=== PATIENT | male | born 1960 | race Two or more races ===

== ENCOUNTER 2016-12-22 10:29 | Inpatient (IN) | payer MEDICARE, OTHER ==
[~2016-12-22] VITALS: Ht 165.1 cm; Wt 77.1 kg
[~2016-12-22 10:29] MED LIST: ASPI-991 PO; CARV6.25 PO; DIVA500T2 PO; GEL100GE MC; HALO5TAB PO; LISI10TA59 PO; LORA1TAB82 PO; MAG30ORA PO; METF500T PO; OLAN5TAB3 PO; SIMV20TA2 PO; SITA50TA PO
[2016-12-22] MEDS ORDERED: MORPHINE SULFATE INJ 4 MG/ML DISP.SYRIN ONE (10:48)
[2016-12-22] MEDS ORDERED: IV NS 0.9% 1,000 ML ONE (10:48)
[2016-12-22] MEDS ORDERED: PANTOPRAZOLE 40 MG VIAL ONE (10:48)
[2016-12-22] MEDS ORDERED: IV SET PRIMARY PUMP SET 1 EA INFUS.SET MC ONE ×2 (10:48→14:15)
[2016-12-22] MEDS ORDERED: ONDANSETRON HCL/PF 4 MG/2 ML VIAL ONE (10:48)
[2016-12-22 10:52] LABS: BASOPHILS % (AUTO) 0.2 % (0.0-2.0); EOSINOPHILS % (AUTO) 0.1 % (0.0-6.0); HEMATOCRIT 37 % (39-51); HEMOGLOBIN 12.3 g/dL (13.5-17.5); LYMPHOCYTES % (AUTO) 7.1 % (20.0-44.0); MEAN CORPUSCULAR HEMOGLOBIN 29 PG (26.0-33.0); MEAN CORPUSCULAR HGB CONC 33 g/dl (31.0-36.0); MEAN CORPUSCULAR VOLUME 87 fL (80-96); MONOCYTES # (AUTO) 0.7 /CMM (0.1-1.30); MONOCYTES % (AUTO) 4.9 % (2.0-12.0); NEUTROPHILS # (AUTO) 12.3 /CMM (1.8-8.9); NEUTROPHILS % (AUTO) 87.7 % (43.0-81.0); PLATELET COUNT (AUTO) 316 /CMM (150-450); RDW COEFFICIENT OF VARIATION 13.2 (11.5-15.0); RED BLOOD CELL COUNT(AUTO) 4.27 MIL/uL (4.5-6.0)
[2016-12-22] MEDS ORDERED: IV NS 0.9% 1,000 ML BAG IV ONE (11:00)
[2016-12-22] MEDS ORDERED: ONDANSETRON HCL/PF 4 MG/2 ML VIAL IVP ONE (11:00)
[2016-12-22] MEDS ORDERED: MORPHINE SULFATE INJ 2 MG/ML DISP.SYRIN IV ONE (11:00)
[2016-12-22] MEDS ORDERED: PANTOPRAZOLE 40 MG VIAL IV ONE (11:00)
[2016-12-22 11:07] LABS: INR 1.24 (0.87-1.13)
[2016-12-22 11:10] LABS: ALBUMIN 3.5 g/dL (3.4-5.0); BILIRUBIN,DIRECT 0.1 mg/dL (0.0-0.2); BILIRUBIN,TOTAL 0.4 mg/dL (0.2-1.0); POTASSIUM 5.9 mmol/L (3.5-5.1); TOTAL PROTEIN, SERUM 8.1 g/dL (6.4-8.2)
[2016-12-22 11:11] LABS: TROPONIN I 0.145 ng/mL (0.00-0.056)
[2016-12-22 11:18] LABS: CALCIUM, SERUM 9.8 mg/dL (8.5-10.1)
[2016-12-22] MEDS ORDERED: INSULIN REGULAR, HUMAN 100 UNIT/ML 10 ML VIAL IV ONE (11:30)
[2016-12-22] MEDS ORDERED: LOSA50TA21 PO (11:37)
[2016-12-22] MEDS ORDERED: AMLO10TA2 PO (11:37)
[2016-12-22] MEDS ORDERED: CHOL100044 PO (11:37)
[2016-12-22] MEDS ORDERED: ERGO50003 PO (11:37)
[2016-12-22] MEDS ORDERED: FINA5TAB11 PO (11:37)
[2016-12-22] MEDS ORDERED: AMOX1TAB16 PO (11:37)
[2016-12-22] MEDS ORDERED: INSULIN REGULAR, HUMAN 100 UNIT/ML 10 ML VIAL ONE (11:38)
[2016-12-22] MEDS ORDERED: LORA0.5T PO (12:00)
[2016-12-22] MEDS ORDERED: SITA50TA PO (12:00)
[2016-12-22] MEDS ORDERED: BLOO-668 IN (12:00)
[2016-12-22] MEDS ORDERED: MAG30ORA PO (12:00)
[2016-12-22] MEDS ORDERED: DIVA500T2 PO (12:00)
[2016-12-22] MEDS ORDERED: METF500T4 PO (12:00)
[2016-12-22] MEDS ORDERED: INSU10VI3 SQ (12:00)
[2016-12-22] MEDS ORDERED: HALO1TAB5 PO (12:00)
[2016-12-22] MEDS ORDERED: LISI10TA5 PO (12:00)
[2016-12-22] MEDS ORDERED: IV D5/0.45 NACL 1,000 ML IV PRN (12:44)
[2016-12-22] MEDS ORDERED: SODIUM POLYSTYRENE SULFONATE 15 G/60 ML BOTTLE ONE (12:56)
[2016-12-22] MEDS ORDERED: SODIUM POLYSTYRENE SULFONATE 15 G/60 ML BOTTLE PO ONE ×2 (13:00)
[2016-12-22] MEDS ORDERED: LORAZEPAM 0.5 MG TABLET PO PRN (13:00)
[2016-12-22] MEDS ORDERED: Z GUARD REMEDY 2 OZ OINT TP PRN (13:00)
[2016-12-22] MEDS ORDERED: MORPHINE SULFATE INJ 2 MG/ML DISP.SYRIN IV PRN (13:00)
[2016-12-22] MEDS ORDERED: ONDANSETRON HCL/PF 4 MG/2 ML VIAL IVP PRN (13:00)
[2016-12-22 15:52] VITALS: BP 112/55
[2016-12-22 16:11] VITALS: BP 112/55
[2016-12-22] MEDS: DIVALPROEX SODIUM 500 MG TABLET.DR PO SCH (16:42)
[2016-12-22] MEDS: BLOOD SUGAR DIAGNOSTIC 1 EACH STRIP IN SCH ×2 (17:51→22:01)
[2016-12-22] MEDS: INSULIN REGULAR, HUMAN 100 UNIT/ML 3 ML VIAL SQ PRN ×2 (17:52→22:13)
[2016-12-22] MEDS ORDERED: DEXTROSE 50%-WATER 50 ML DISP.SYRIN IV PRN (18:00)
[2016-12-22 20:00] VITALS: BP 97/54
[2016-12-22 22:00] VITALS: BP 97/54
[2016-12-23] VITALS (7 sets, daily range): BP systolic 91–120; BP diastolic 48–65
[2016-12-23] MEDS ORDERED: IV SET PRIMARY PUMP SET 1 EA INFUS.SET MC ONE ×2 (01:06→19:24)
[2016-12-23] MEDS ORDERED: IV NS 0.9% 1,000 ML ONE (01:06)
[2016-12-23] MEDS: INSULIN REGULAR, HUMAN 100 UNIT/ML 3 ML VIAL SQ PRN ×2 (01:20→11:58)
[2016-12-23] MEDS: IV NS 0.9% 1,000 ML IV PRN (01:21)
[2016-12-23 06:01] LABS: BASOPHILS % (AUTO) 0.3 % (0.0-2.0); HEMATOCRIT 35 % (39-51); HEMOGLOBIN 11.6 g/dL (13.5-17.5); LYMPHOCYTES # (AUTO) 1.2 /CMM (0.8-4.8); LYMPHOCYTES % (AUTO) 8.4 % (20.0-44.0); MEAN CORPUSCULAR HEMOGLOBIN 30 PG (26.0-33.0); MEAN CORPUSCULAR HGB CONC 34 g/dl (31.0-36.0); MEAN CORPUSCULAR VOLUME 89 fL (80-96); MONOCYTES # (AUTO) 0.8 /CMM (0.1-1.30); MONOCYTES % (AUTO) 5.6 % (2.0-12.0); NEUTROPHILS # (AUTO) 12.5 /CMM (1.8-8.9); NEUTROPHILS % (AUTO) 85.7 % (43.0-81.0); PLATELET COUNT (AUTO) 286 /CMM (150-450); RDW COEFFICIENT OF VARIATION 14.3 (11.5-15.0); RED BLOOD CELL COUNT(AUTO) 3.88 MIL/uL (4.5-6.0); WHITE BLOOD COUNT (AUTO) 14.6 K/uL (4.3-11.0)
[2016-12-23] MEDS: BLOOD SUGAR DIAGNOSTIC 1 EACH STRIP IN SCH ×4 (06:16→22:44)
[2016-12-23 06:20] LABS: INR 1.08 (0.87-1.13); PROTHROMBIN TIME 11.6 SECS (9.5-12.7)
[2016-12-23 06:27] LABS: CALCIUM, SERUM 8.8 mg/dL (8.5-10.1); CREATININE 7.4 mg/dL (0.6-1.3); MAGNESIUM 2.5 mg/dL (1.8-2.4)
[2016-12-23 06:31] LABS: THYROID STIMULATING HORMONE 1.593 uIU/mL (0.358-3.74)
[2016-12-23 06:32] LABS: TROPONIN I 36.685 ng/mL (0.00-0.056)
[2016-12-23 06:37] LABS: PHOSPHORUS 11.1 mg/dL (2.5-4.9); POTASSIUM 7.3 mmol/L (3.5-5.1)
[2016-12-23] MEDS ORDERED: Calcium Gluconate 1GM/10ML 9.3 MEQ in IV D5W 250 ML IV ONE (07:00)
[2016-12-23] MEDS ORDERED: INSULIN REGULAR, HUMAN 100 UNIT/ML 10 ML VIAL IV ONE (07:30)
[2016-12-23] MEDS ORDERED: DEXTROSE 50%-WATER 50 ML DISP.SYRIN IVP ONE (07:30)
[2016-12-23] MEDS ORDERED: SECONDARY IV SET 1 EA INFUS.SET MC ONE (07:53)
[2016-12-23] MEDS: DIVALPROEX SODIUM 500 MG TABLET.DR PO SCH ×2 (09:00→17:47)
[2016-12-23] MEDS: PANTOPRAZOLE 40 MG VIAL IV SCH (09:29)
[2016-12-23] MEDS ORDERED: LIDOCAINE /MPF 1% VIAL 5 ML VIAL IJ ONE (10:00)
[2016-12-23] MEDS: SEVELAMER CARBONATE 800 MG TABLET PO SCH ×2 (13:00→17:47)
[2016-12-23] MEDS: ASPIRIN 325 MG TABLET PO SCH (17:47)
[2016-12-23] MEDS ORDERED: HEPARIN SODIUM, PORCINE 5000 UNITS/1 ML VIAL IV ONE (19:00)
[2016-12-23] MEDS: HEPARIN INFUSION/D5W 500 ML IV PRN ×2 (19:41→19:54)
[2016-12-23] MEDS ORDERED: MENTHOL/CETYLPYRD (CEPACOL) 1 LOZ LOZENGE PO PRN (20:30)
[2016-12-24] VITALS (7 sets, daily range): BP systolic 94–108; BP diastolic 45–52
[2016-12-24 02:38] LABS: INR 1.11 (0.87-1.13)
[2016-12-24 03:51] LABS: BILIRUBIN,URINE 1+ (NEGATIVE); BLOOD, URINE 3+ Ery/uL (NEGATIVE); COLOR,URINE YELLOW (YELLOW); KETONES,URINE TRACE (NEGATIVE); LEUKOCYTE ESTERASE ,URINE 2+ (NEGATIVE); NITRITE, URINE NEGATIVE (NEGATIVE); PH,URINE 5.5 (5.0-8.0); PROTEIN,URINE 1+ mg/dl (NEGATIVE); UGLUCOSE NEGATIVE (NEGATIVE); UROBILINOGEN,URINE 0.2 EU/dL (0.2)
[2016-12-24 04:06] LABS: APPEARANCE,URINE CLOUDY (CLEAR)
[2016-12-24 04:07] LABS: BACTERIA,URINE 3+ /HPF (None Seen); SQUAMOUS EPITHELIAL CELL,UR Few /HPF (None Seen); WBC,URINE 25-35 /HPF (0-3)
[2016-12-24 05:04] LABS: CREATININE, URINE 114.5 MG/DL (30.0-125.0); URINE TOTAL PROTEIN 126.1 mg/dL (0-11.9)
[2016-12-24 05:06] LABS: EOSINOPHIL,URINE None Seen
[2016-12-24] MEDS ORDERED: IV SET PRIMARY PUMP SET 1 EA INFUS.SET MC ONE (05:32)
[2016-12-24] MEDS: IV NS 0.9% 1,000 ML IV PRN (05:37)
[2016-12-24 07:49] LABS: ALBUMIN 2.2 g/dL (3.4-5.0); BILIRUBIN,TOTAL 0.4 mg/dL (0.2-1.0); CREATININE 6.5 mg/dL (0.6-1.3); MAGNESIUM 1.3 mg/dL (1.8-2.4); PHOSPHORUS 6.8 mg/dL (2.5-4.9); POTASSIUM 4.7 mmol/L (3.5-5.1); TOTAL PROTEIN, SERUM 5.6 g/dL (6.4-8.2)
[2016-12-24 07:53] LABS: TROPONIN I 39.69 ng/mL (0.00-0.056)
[2016-12-24] MEDS: INSULIN REGULAR, HUMAN 100 UNIT/ML 3 ML VIAL SQ PRN ×4 (08:10→21:51)
[2016-12-24] MEDS: DIVALPROEX SODIUM 500 MG TABLET.DR PO SCH ×2 (08:12→16:43)
[2016-12-24] MEDS: PANTOPRAZOLE 40 MG VIAL IV SCH (08:13)
[2016-12-24] MEDS: BLOOD SUGAR DIAGNOSTIC 1 EACH STRIP IN SCH ×4 (08:13→21:45)
[2016-12-24] MEDS: SEVELAMER CARBONATE 800 MG TABLET PO SCH ×3 (08:13→17:45)
[2016-12-24] MEDS: ASPIRIN 325 MG TABLET PO SCH (08:13)
[2016-12-24 12:16] LABS: CREATINE KINASE MB 122.3 ng/mL (0-3.6)
[2016-12-24 12:17] LABS: BASOPHILS % (AUTO) 0.2 % (0.0-2.0); EOSINOPHILS % (AUTO) 0.1 % (0.0-6.0); HEMATOCRIT 29 % (39-51); HEMOGLOBIN 9.9 g/dL (13.5-17.5); LYMPHOCYTES # (AUTO) 0.5 /CMM (0.8-4.8); LYMPHOCYTES % (AUTO) 6.1 % (20.0-44.0); MEAN CORPUSCULAR HEMOGLOBIN 29 PG (26.0-33.0); MEAN CORPUSCULAR HGB CONC 34 g/dl (31.0-36.0); MEAN CORPUSCULAR VOLUME 86 fL (80-96); MONOCYTES # (AUTO) 0.8 /CMM (0.1-1.30); MONOCYTES % (AUTO) 8.7 % (2.0-12.0); NEUTROPHILS # (AUTO) 7.7 /CMM (1.8-8.9); NEUTROPHILS % (AUTO) 84.9 % (43.0-81.0); PLATELET COUNT (AUTO) 232 /CMM (150-450); RDW COEFFICIENT OF VARIATION 14.6 (11.5-15.0); RED BLOOD CELL COUNT(AUTO) 3.39 MIL/uL (4.5-6.0)
[2016-12-24 13:37] LABS: BAND % (MANUAL) 29 % (0.0-5.0); LYMPHOCYTES % (MANUAL) 2 % (16-48); MONOCYTES % (MANUAL) 9 % (0-11.0); MYELOCYTES % 1 % (0-0); NEUTROPHILS % (MANUAL) 59 (42-76)
[2016-12-24] MEDS ORDERED: SECONDARY IV SET 1 EA INFUS.SET MC ONE (16:34)
[2016-12-24] MEDS: SOD FERRIC GLUC 125 MG in IV NS 0.9% 100 ML IV SCH (16:39)
[2016-12-24] MEDS: HEPARIN INFUSION/D5W 500 ML IV PRN (20:34)
[2016-12-25] VITALS: BP 96/61
[2016-12-25 03:06] LABS: INR 1.2 (0.87-1.13)
[2016-12-25 04:00] VITALS: BP 103/52
[2016-12-25] MEDS: INSULIN REGULAR, HUMAN 100 UNIT/ML 3 ML VIAL SQ PRN ×3 (06:33→21:38)
[2016-12-25] MEDS: BLOOD SUGAR DIAGNOSTIC 1 EACH STRIP IN SCH ×4 (06:35→21:29)
[2016-12-25 07:51] LABS: EOSINOPHILS % (AUTO) 0.1 % (0.0-6.0); HEMATOCRIT 27 % (39-51); HEMOGLOBIN 9.7 g/dL (13.5-17.5); LYMPHOCYTES # (AUTO) 0.7 /CMM (0.8-4.8); LYMPHOCYTES % (AUTO) 9.2 % (20.0-44.0); MEAN CORPUSCULAR HEMOGLOBIN 30 PG (26.0-33.0); MEAN CORPUSCULAR HGB CONC 35 g/dl (31.0-36.0); MEAN CORPUSCULAR VOLUME 85 fL (80-96); MONOCYTES # (AUTO) 0.8 /CMM (0.1-1.30); MONOCYTES % (AUTO) 11.7 % (2.0-12.0); NEUTROPHILS # (AUTO) 5.6 /CMM (1.8-8.9); PLATELET COUNT (AUTO) 228 /CMM (150-450); RDW COEFFICIENT OF VARIATION 14.7 (11.5-15.0); RED BLOOD CELL COUNT(AUTO) 3.23 MIL/uL (4.5-6.0); WHITE BLOOD COUNT (AUTO) 7.1 K/uL (4.3-11.0)
[2016-12-25 08:00] VITALS: BP_SYST 181; BP_SYST 99; BP_DIAS 56; BP_DIAS 70
[2016-12-25 08:26] LABS: BILIRUBIN,TOTAL 0.6 mg/dL (0.2-1.0); CALCIUM, SERUM 6.9 mg/dL (8.5-10.1); CREATININE 4.2 mg/dL (0.6-1.3); MAGNESIUM 1.6 mg/dL (1.8-2.4); PHOSPHORUS 3.2 mg/dL (2.5-4.9); TOTAL PROTEIN, SERUM 5.7 g/dL (6.4-8.2)
[2016-12-25 08:31] LABS: TROPONIN I 18.236 ng/mL (0.00-0.056)
[2016-12-25] MEDS: PANTOPRAZOLE 40 MG VIAL IV SCH (10:06)
[2016-12-25] MEDS: SEVELAMER CARBONATE 800 MG TABLET PO SCH ×3 (10:07→18:22)
[2016-12-25] MEDS: ASPIRIN 325 MG TABLET PO SCH (10:07)
[2016-12-25] MEDS: DIVALPROEX SODIUM 500 MG TABLET.DR PO SCH ×2 (10:07→17:00)
[2016-12-25 10:14] LABS: POTASSIUM 3.1 mmol/L (3.5-5.1)
[2016-12-25 12:00] VITALS: BP 100/57
[2016-12-25] MEDS: SOD FERRIC GLUC 125 MG in IV NS 0.9% 100 ML IV SCH (14:00)
[2016-12-25] MEDS ORDERED: SECONDARY IV SET 1 EA INFUS.SET MC ONE (15:12)
[2016-12-25 16:00] VITALS: BP 104/60
[2016-12-25 20:00] VITALS: BP 108/60
[2016-12-25] MEDS: HEPARIN INFUSION/D5W 500 ML IV PRN (22:48)
[2016-12-26] VITALS: BP 109/57
[2016-12-26 02:46] LABS: INR 1.14 (0.87-1.13); PROTHROMBIN TIME 12.3 SECS (9.5-12.7)
[2016-12-26 04:00] VITALS: BP 118/61
[2016-12-26] MEDS: IV NS 0.9% 1,000 ML IV PRN (06:22)
[2016-12-26] MEDS: BLOOD SUGAR DIAGNOSTIC 1 EACH STRIP IN SCH (06:42)
[2016-12-26 06:56] LABS: BILIRUBIN,TOTAL 0.5 mg/dL (0.2-1.0); CALCIUM, SERUM 7.2 mg/dL (8.5-10.1); CREATININE 2.3 mg/dL (0.6-1.3); MAGNESIUM 1.6 mg/dL (1.8-2.4); PHOSPHORUS 2.4 mg/dL (2.5-4.9); TOTAL PROTEIN, SERUM 5.9 g/dL (6.4-8.2)
[2016-12-26 06:57] LABS: BASOPHILS % (AUTO) 0.1 % (0.0-2.0); EOSINOPHILS % (AUTO) 0.5 % (0.0-6.0); HEMATOCRIT 28 % (39-51); HEMOGLOBIN 9.4 g/dL (13.5-17.5); LYMPHOCYTES # (AUTO) 0.8 /CMM (0.8-4.8); LYMPHOCYTES % (AUTO) 14.6 % (20.0-44.0); MEAN CORPUSCULAR HEMOGLOBIN 29 PG (26.0-33.0); MEAN CORPUSCULAR HGB CONC 34 g/dl (31.0-36.0); MEAN CORPUSCULAR VOLUME 86 fL (80-96); MONOCYTES # (AUTO) 0.7 /CMM (0.1-1.30); MONOCYTES % (AUTO) 12.2 % (2.0-12.0); NEUTROPHILS # (AUTO) 3.9 /CMM (1.8-8.9); NEUTROPHILS % (AUTO) 72.6 % (43.0-81.0); PLATELET COUNT (AUTO) 242 /CMM (150-450); RDW COEFFICIENT OF VARIATION 14.7 (11.5-15.0); RED BLOOD CELL COUNT(AUTO) 3.21 MIL/uL (4.5-6.0); TROPONIN I 9.901 ng/mL (0.00-0.056); WHITE BLOOD COUNT (AUTO) 5.4 K/uL (4.3-11.0)
[2016-12-26] MEDS ORDERED: POTASSIUM CHLORIDE 20 MEQ POWDER PACKET PO ONE (07:30)
[2016-12-26] MEDS ORDERED: Magnesium 1GM/D5W 100ML PREMIX 100 ML IV SCH (07:30)
[2016-12-26] MEDS ORDERED: SECONDARY IV SET 1 EA INFUS.SET MC ONE (07:36)
[2016-12-26 08:00] VITALS: BP 111/52
[2016-12-26 10:33] LABS: *SPE A/G RATIO 1.1 (0.7-1.7); *SPE ALBUMIN 2.7 g/dL (2.9-4.4); *SPE ALPHA-1-GLOBULIN 0.4 g/dL (0.0-0.4); *SPE ALPHA-2-GLOBULIN 0.7 g/dL (0.4-1.0); *SPE BETA GLOBULIN 0.8 g/dL (0.7-1.3); *SPE GLOBULIN, TOTAL 2.5 g/dL (2.2-3.9); *SPE M-SPIKE Not Observed g/dL (Not Observed); *SPE PROTEIN TOTAL 5.2 g/dL (6.0-8.5); *SPEGAMMA GLOBULIN 0.6 g/dL (0.4-1.8)
[2016-12-27 12:15] LABS: PTH, INTACT 149 pg/mL (15-65)
== END 2016-12-26 10:41 | disposition short-term general hospital (02) | DRG 280 ==
LOC: ER 10:30 → TELE 13:58 → TELE1 12-23 17:09
PROC: 5A1D60Z (ICD-10-PCS; principal; 2016-12-23)
PROC: 06HN33Z Insertion of Infusion Device into Left Femoral Vein, Percutaneous Approach (ICD-10-PCS; 2016-12-23)
PROC: B54CZZA Ultrasonography of Left Lower Extremity Veins, Guidance (ICD-10-PCS; 2016-12-23)
DX: I21.4 Non-ST elevation (NSTEMI) myocardial infarction (principal); I50.31 Acute diastolic (congestive) heart failure; K92.2 Gastrointestinal hemorrhage, unspecified; E87.1 Hypo-osmolality and hyponatremia; D68.9 Coagulation defect, unspecified; E87.2 Acidosis; N17.9 Acute kidney failure, unspecified; I13.0 Hypertensive heart and chronic kidney disease with heart failure and stage 1 through stage 4 chronic kidney disease, or unspecified chronic kidney disease; E11.65 Type 2 diabetes mellitus with hyperglycemia; E87.5 Hyperkalemia; D64.9 Anemia, unspecified; J44.9 Chronic obstructive pulmonary disease, unspecified; E78.5 Hyperlipidemia, unspecified; F20.9 Schizophrenia, unspecified; N18.9 Chronic kidney disease, unspecified; Z79.899 Other long term (current) drug therapy; Z79.4 Long term (current) use of insulin; Z79.84 Long term (current) use of oral hypoglycemic drugs; D72.829 Elevated white blood cell count, unspecified; F31.9 Bipolar disorder, unspecified; D50.9 Iron deficiency anemia, unspecified; Z71.6 Tobacco abuse counseling; F17.210 Nicotine dependence, cigarettes, uncomplicated; E11.22 Type 2 diabetes mellitus with diabetic chronic kidney disease; I25.10 Atherosclerotic heart disease of native coronary artery without angina pectoris
CPT/HCPCS: 36415; 71010-TC; 76770-TC; 80048-TC; 80053-TC; 80061-TC; 80076-TC; 81000-TC; 82550-TC; 82553-TC; 82570-TC; 82947-TC; 82962-TC; 83540-TC; 83690-TC; 83735-TC; 83970; 84100-TC; 84132-TC; 84155; 84155-TC; 84165; 84300-TC; 84443-TC; 84484-TC; 85025-TC; 85610-TC; 85730-TC; 86850-TC; 87081-TC; 87086-TC; 87186-TC; 90935-TC; 93307-TC; 94799-TC; A4606; C9113; J0610; J1644; J1815; J2270; J2405; J2916; J3475; J3490; J7030; J7060; Z7610